=== PATIENT | female | born 1970 ===

== ENCOUNTER 2017-05-04 16:23 | Observation (INO) | payer MEDICAID ==
[2017-05-04] MEDS ORDERED: Sodium Chloride 0.9% 1,000 ML IV STA (17:44)
[2017-05-04 18:42] LABS: PH,URINE 6.5 (4.7-8.0); URINE BILIRUBIN NEGATIVE (NEGATIVE); URINE BLOOD LARGE (NEGATIVE); URINE GLUCOSE (UA) NEGATIVE (NEGATIVE); URINE KETONE NEGATIVE (NEGATIVE); URINE LEUKOCYTE ESTERASE SMALL Leu/uL (NEGATIVE); URINE PROTEIN TRACE mg/dL (<30 mg/dL); URINE UROBILINOGEN 0.2 E.U./dL (<1 E.U./dL)
--- NOTE | 2017-05-04 18:42 | ED PDOC ---
Arrival/HPI - General Chief Complaint: Female Genitourinary Time Seen by Provider: 05/04/17 17:43 Historian: Patient - History of Present Illness Narrative History of Present Illness (Text): 05/04/17 18:35 46yr old female with a history of hysterectomy presents today with hematuria that started this morning. Patient states she's had bright red blood with urination today. Patient states initially in the morning the urine looked brown in color. Patient states it's now yellow but she is still seeing blood in the toilet bowl. She denies vaginal bleeding. She denies rectal bleeding. Patient states she started to develop a sharp bilateral back pain. pt developed right sided abdominal pain No nausea or vomiting. Patient denies dizziness or weakness. No fevers or chills. Denies history of kidney stones in the past. No other complaints no medications have been taken for pain at home. Time/Duration: Other (1 day) Symptom Onset: Gradual Symptom Course: Worsening Past Medical History - Provider Review Nursing Documentation Reviewed: Yes - Travel History Have you recently traveled outside [place] w/in the past 3 mons?: No - Infectious Disease Hx of Infectious Diseases: None - Tetanus Immunization Tetanus Immunization: Unknown - Cardiac Hx Hypertension: Yes - Pulmonary Hx Respiratory Disorders: No - Neurological Hx Neurological Disorder: No - HEENT Hx HEENT Disorder: No - Renal Hx Renal Disorder: Yes Hx Kidney Stones: Yes - Endocrine/Metabolic Hx Endocrine Disorders: No - Hematological/Oncological Hx Blood Disorders: Yes Hx Anemia: Yes - Integumentary Hx Dermatological Disorder: No - Musculoskeletal/Rheumatological Hx Musculoskeletal Disorders: No - Gastrointestinal Hx Gastrointestinal Disorders: No - Genitourinary/Gynecological Hx Genitourinary Disorders: Yes (Uterine Leiomyoma) - Psychiatric Hx Anxiety: No Hx Bipolar Disorder: No Hx Depression: No Hx Emotional Abuse: No Hx Hallucinations: No Hx Panic Disorder: No Hx Post Traumatic Stress Disorder: No Hx Psychosis: No Hx Physical Abuse: No Hx Schizophrenia: No Hx Sexual Abuse: No Hx Substance Use: No - Past Surgical History Past Surgical History: No Previous - Surgical History Hx Hysterectomy: Yes (2016) - Anesthesia Hx Anesthesia: Yes Hx Anesthesia Reactions: No Hx Malignant Hyperthermia: No - Suicidal Assessment Feels Threatened In Home Enviroment: No Family/Social History - Physician Review Nursing Documentation Reviewed: Yes Family/Social History: Unknown Family HX Smoking Status: Never Smoked Hx Alcohol Use: No Hx Substance Use: No Hx Substance Use Treatment: No Allergies/Home Meds Allergies/Adverse Reactions: Allergies No Known Allergies Allergy (Verified 09/28/16 15:58) Review of Systems - Review of Systems Constitutional: absent: Fatigue, Fevers Respiratory: absent: SOB, Cough Cardiovascular: absent: Chest Pain, Palpitations Gastrointestinal: Abdominal Pain. absent: Constipation, Diarrhea, Nausea, Vomiting Genitourinary Female: Hematuria. absent: Dysuria, Frequency, Vaginal Bleeding, Vaginal Discharge Musculoskeletal: Back Pain. absent: Arthralgias, Neck Pain Skin: absent: Rash, Pruritis Neurological: absent: Headache, Dizziness Psychiatric: absent: Anxiety, Depression Physical Exam Vital Signs Reviewed: Yes Vital Signs Temp Pulse Resp BP Pulse Ox 05/04/17 21:53 80 18 156/98 H 98 05/04/17 19:28 70 18 146/72 98 05/04/17 17:24 98.2 F 69 18 148/88 98 Temperature: Afebrile Blood Pressure: Normal Pulse: Regular Respiratory Rate: Normal Appearance: Positive for: Well-Appearing, Non-Toxic, Comfortable Pain Distress: None Mental Status: Positive for: Alert and Oriented X 3 - Systems Exam Head: Present: Atraumatic Mouth: Present: Moist Mucous Membranes Neck: Present: Normal Range of Motion Respiratory/Chest: Present: Clear to Auscultation, Good Air Exchange. No: Respiratory Distress, Accessory Muscle Use Cardiovascular: Present: Regular Rate and Rhythm, Normal S1, S2. No: Murmurs Abdomen: Present: Tenderness (+ minimal right lower abd tenderness), Normal Bowel Sounds. No: Distention, Peritoneal Signs, Rebound, Guarding Back: Present: Normal Inspection, CVA Tenderness, Midline Tenderness, Other ( bilateral flank tenderness) Upper Extremity: Present: Normal ROM Lower Extremity: Present: Normal ROM Neurological: Present: GCS=15 Skin: Present: Warm, Dry, Normal Color. No: Rashes Psychiatric: Present: Alert, Oriented x 3 Medical Decision Making ED Course and Treatment: 05/04/17 19:37 Patient is nontoxic well appearing with stable vital signs presenting with right sided lower abdominal pain and flank pain toradol and NS given IV. CBC wnl CMP wnl Urinalysis + blood, small leukocytes CAT scan: FINDINGS: Lower thorax: Heart size is normal. There is minimal atelectasis and scarring at the lung bases there is prominence of the right hilum difficult to further evaluate gallbladder is partially distended.There is prominence of the common duct. There is a small hiatal hernia. ABDOMEN: Liver: unremarkable Gallbladder and bile ducts: unremarkable Pancreas: Pancreas is mildly atrophic. Spleen: unremarkable Adrenals: unremarkable Kidneys and ureters: Right kidney and ureter are unremarkable. There is obstructive uropathy on the left. There is a 7 x 6 mm obstructing stone at the left ureteropelvic junction. Ureter distal to the stone is unremarkable. Stomach and bowel: Stomach is almost empty. Rotation is normal. There are mildly distended small bowel loops in the left upper quadrant. There is no obstruction. Coronal ileum is unremarkable.Appendix is not visualized.There is no pericecal inflammation. There is moderately large amount of stool in the right colon. Appendix: See above. PELVIS: Bladder: unremarkable Reproductive: Uterus is absent. There are no adnexal masses. .ABDOMEN and PELVIS: Intraperitoneal space: There is no free air or free fluid. Bones/joints: There are degenerative changes in the osseus structures. Soft tissues: There is a small fat containing umbilical hernia. Vasculature: Vascular structures are unremarkable. There are multiple phleboliths. Lymph nodes: There is no pathologic adenopathy. IMPRESSION: 7 x 6 mm obstructing stone, left ureteropelvic junction Additional findings as described above. Patient reassessment:pt with continued pain; morphine added. case discussed with dr. ovalle in depth; Admit patient to hospitalist. he would like patient NPO after midnight; add rocephin IV. He will place stent tomorrow. Discussed all results with patient in depth case discussed with resident dr. Terry case discussed with dr. Daisy ivy accepts admission. Impression: obstructing stone, abdominal pain, back pain admit tp med/surg urology consult. dr ovalle. - Lab Interpretations Lab Results: 05/04/17 18:35 05/04/17 18:55 Lab Results 05/04/17 18:55: Phosphorus 3.7, Magnesium 2.2 05/04/17 18:55: Sodium 145, Potassium 3.4 L, Chloride 106, Carbon Dioxide 28, Anion Gap 14, BUN 9, Creatinine 0.5 L, Est GFR ( Amer) > 60, Est GFR (Non -Af Amer) > 60, Random Glucose 83, Calcium 9.5, Total Bilirubin 0.5, AST 24, ALT 40, Alkaline Phosphatase 111, Total Protein 7.7, Albumin 4.6, Globulin 3.1, Albumin/Globulin Ratio 1.5, Lipase 79 05/04/17 18:35: WBC 7.7, RBC 4.72, Hgb 12.2, Hct 37.6, MCV 79.7 L, MCH 25.8, MCHC 32.4, RDW 15.1 H, Plt Count 268, MPV 11.5 H, Gran % 55.6, Lymph % (Auto) 33.3, [place] % (Auto) 6.1 H, Eos % (Auto) 4.6, Baso % (Auto) 0.4, Gran # 4.27, Lymph # 2.6, Fisher # 0.5, Eos # 0.4, Baso # 0.03 05/04/17 17:45: Urine Color Light yellow, Urine Appearance Clear, Urine pH 6.5, Ur Specific [place] 1.010, Urine Protein Trace H, Urine Glucose (UA) Negative, Urine Ketones Negative, Urine Blood Large H, Urine Nitrate Negative, Urine Bilirubin Negative, Urine Urobilinogen 0.2, Ur Leukocyte Esterase Small H, Urine RBC 10 - 15, Urine WBC 2 - 5, Ur Epithelial Cells 0 - 2, Urine Bacteria Small, Urine Other Fiber - RAD Interpretation Radiology Orders: 05/04/17 17:54 ABD & PELVIS W/O PO OR IV CONT [CT] Stat - Medication Orders Current Medication Orders: Acetaminophen (Tylenol 325mg Tab) 650 mg PO Q6H PRN PRN Reason: Fever >100.4 F Amlodipine Besylate (Norvasc) 5 mg PO DAILY BIJAN Sodium Chloride (Sodium Chloride 0.9%) 1,000 mls @ 125 mls/hr IV .Q8H [facility] Morphine Sulfate (Morphine) 2 mg IVP Q4H PRN PRN Reason: Pain, severe (8-10) Pantoprazole Sodium (Protonix Inj) 40 mg IVP DAILY BIJAN Discontinued Medications Sodium Chloride (Sodium Chloride 0.9%) 1,000 mls @ 999 mls/hr IV .Q1H1M STA Stop: 05/04/17 18:44 Last Admin: 05/04/17 19:10 Dose: 999 mls/hr eMAR Start Stop Document 05/04/17 19:10 AD (Rec: 05/04/17 19:10 [email or web address] Intravenous Solution Start Date 05/04/17 Start Time 19:10 Ceftriaxone Sodium (Rocephin 1 Gram Ivpb) 1 gm in 100 mls @ 200 mls/hr IVPB STAT STA PRN Reason: Protocol Stop: 05/04/17 22:25 Last Admin: 05/04/17 22:50 Dose: 200 mls/hr eMAR Start Stop Document 05/04/17 22:50 EQ (Rec: 05/04/17 22:50 EQ [id number]) Intravenous Solution Start Date 05/04/17 Start Time 22:50 Ketorolac Tromethamine (Toradol) 30 mg IVP STAT STA Stop: 05/04/17 17:54 Last Admin: 05/04/17 19:11 Dose: 30 mg MAR Pain Assessment Document 05/04/17 19:11 AD (Rec: 05/04/17 19:11 [email or web address] Pain Reassessment Is this a pain reassessment? No Presence of Pain Presence of Pain Yes Pain Scale Used Pain Scale Used Numeric Description Intensity of Pain at present 6 IVP Administration Document 05/04/17 19:11 AD (Rec: 05/04/17 19:11 [facility] Charges for Administration # of IVP Administrations 1 Morphine Sulfate (Morphine) 4 mg IVP STAT STA Stop: 05/04/17 21:41 Last Admin: 05/04/17 22:50 Dose: 4 mg MAR Pain Assessment Document 05/04/17 22:50 EQ (Rec: 05/04/17 22:50 EQ [id number]) Pain Reassessment Is this a pain reassessment? No Sleep Is patient sleeping during reassessment? No Presence of Pain Presence of Pain Yes IVP Administration Document 05/04/17 22:50 EQ (Rec: 05/04/17 22:50 EQ [id number]) Charges for Administration # of IVP Administrations 1 Morphine Sulfate (Morphine) 4 mg IVP Q4H PRN PRN Reason: Pain, severe (8-10) Potassium Chloride (K-Dur 20 Meq Er Tab) 20 meq PO STAT STA Stop: 05/04/17 22:46 Last Admin: 05/04/17 23:05 Dose: 20 meq Disposition/Present on Arrival - Present on Arrival Any Indicators Present on Arrival: No History of DVT/PE: No History of Uncontrolled Diabetes: No Urinary Catheter: No History of Decub. Ulcer: No History Surgical Site Infection Following: None - Disposition Have Diagnosis and Disposition been Completed?: Yes Diagnosis: Urinary tract obstruction by kidney stone Disposition: HOSPITALIZED Disposition Time: 22:15 Patient Plan: Observation Condition: FAIR
[2017-05-04 18:48] LABS: URINE APPEARANCE CLEAR (CLEAR); URINE COLOR LIGHT YELLOW (YELLOW)
[2017-05-04 19:15] LABS: ALB/GLOB RATIO 1.5 (1.1-1.8); ALKALINE PHOSPHATASE 111 U/L (38-126); ALT/SGPT 40 U/L (7-56); AST/SGOT 24 U/L (14-36); BILIRUBIN,TOTAL 0.5 mg/dL (0.2-1.3); BLOOD UREA NITROGEN 9 mg/dL (7-21); CALCIUM 9.5 mg/dL (8.4-10.5); CARBON DIOXIDE 28 mmol/L (21-33); GFR AFRICAN-AMERICAN > 60; GLUCOSE,RANDOM 83 mg/dL (70-110); TOTAL PROTEIN 7.7 g/dL (5.8-8.3)
[2017-05-04 19:17] LABS: BASO # 0.03 K/mm3 (0.0-2.0); BASO % 0.4 % (0.0-3.0); EOS # 0.4 (0.0-0.7); EOS % 4.6 % (1.5-5.0); GRAN # 4.27 (1.4-6.5); GRAN % 55.6 % (50.0-68.0); HEMATOCRIT 37.6 % (36.0-48.0); LYMPH # 2.6 (1.2-3.4); LYMPH % 33.3 % (22.0-35.0); MEAN CELL VOLUME 79.7 fl (80.0-105.0); MEAN CORPUSCULAR HEMOGLOBIN 25.8 pg (25.0-35.0); MEAN CORPUSCULAR HGB CONC 32.4 g/dl (31.0-37.0); MEAN PLATELET VOLUME 11.5 fl (7.0-11.0); MONO # 0.5 (0.1-0.6); MONO % 6.1 % (1.0-6.0); RED CELL DISTRIBUTION WIDTH 15.1 % (11.5-14.5); WHITE BLOOD COUNT 7.7 10^3/ul (4.5-11.0)
[2017-05-04 19:18] LABS: URINE BACTERIA SMALL (NEG); URINE EPITHELIAL CELLS 0 - 2 /hpf (0-5)
[2017-05-04 19:30] LABS: CHLORIDE 106 mmol/L (98-107); LIPASE 79 U/L (23-300); POTASSIUM 3.4 mmol/L (3.6-5.0); SODIUM 145 mmol/L (132-148)
--- NOTE | 2017-05-04 21:20 | CT ---
EXAM: CT Abdomen and Pelvis Without Intravenous Contrast EXAM DATE/TIME: 05/04/2017 5:54 PM CLINICAL HISTORY: 46 years old, female; Pain; Abdominal pain; Flank; Right; Additional info: Right sided abd pain/back pain/ hematuria TECHNIQUE: Axial computed tomography images of the abdomen and pelvis without intravenous contrast. All CT scans at this facility use one or more dose reduction techniques, viz.: automated exposure control; ma/kV adjustment per patient size (including targeted exams where dose is matched to indication; i.e. head); or iterative reconstruction technique. Coronal and sagittal reformatted images were created and reviewed. COMPARISON: CT - ABD PELVIS IV CONTRAST ONLY 09/17/2015 5:57:00 PM FINDINGS: Lower thorax: Heart size is normal. There is minimal atelectasis and scarring at the lung bases there is prominence of the right hilum difficult to further evaluate gallbladder is partially distended.There is prominence of the common duct. There is a small hiatal hernia. ABDOMEN: Liver: unremarkable Gallbladder and bile ducts: unremarkable Pancreas: Pancreas is mildly atrophic. Spleen: unremarkable Adrenals: unremarkable Kidneys and ureters: Right kidney and ureter are unremarkable. There is obstructive uropathy on the left. There is a 7 x 6 mm obstructing stone at the left ureteropelvic junction. Ureter distal to the stone is unremarkable. Stomach and bowel: Stomach is almost empty. Rotation is normal. There are mildly distended small bowel loops in the left upper quadrant. There is no obstruction. Coronal ileum is unremarkable.Appendix is not visualized.There is no pericecal inflammation. There is moderately large amount of stool in the right colon. Appendix: See above. PELVIS: Bladder: unremarkable Reproductive: Uterus is absent. There are no adnexal masses. . ABDOMEN and PELVIS: Intraperitoneal space: There is no free air or free fluid. Bones/joints: There are degenerative changes in the osseus structures. Soft tissues: There is a small fat containing umbilical hernia. Vasculature: Vascular structures are unremarkable. There are multiple phleboliths. Lymph nodes: There is no pathologic adenopathy. IMPRESSION: 7 x 6 mm obstructing stone, left ureteropelvic junction Additional findings as described above.
[2017-05-04] MEDS ORDERED: Morphine 4 mg/ml ISec IVP STA (21:40)
[2017-05-04] MEDS ORDERED: cefTRIAXone 1 gm 1 GM/100 ML BAG IVPB STA (21:56)
[2017-05-04] MEDS ORDERED: Morphine 4 mg/ml ISec IVP PRN (22:27)
[2017-05-04] MEDS ORDERED: Sodium Chloride 0.9% 1,000 ML IV SCH (22:30)
--- NOTE | 2017-05-04 22:44 | CP.PCM.HP ---
<SUZIE JOSEPH - Last Filed: 05/04/17 22:37> History of Present Illness - History of Present Illness History of Present Illness: CC: Hematuria Pt is a 46 yo female with PMH of HTN presents with c/o blood in urine. Pt states that this AM she had increased right sided back pain, above her baseline back pain of MSK origin. Pt described pain as a 7 out of 10, sharp, burning, and radiated down to her right buttocks. Pt stated that the pain made it difficult for her to ambulate. Pt also stated that her urine was brown. In the afternoon, pt began noticing blood in her urine, but denied dysuria. Pt drank some cranberry juice believing the hematuria could be due to a UTI. Pt symptoms did not resolve with cranberry juice. Pt denied any other alleviating or aggravating factors. Pt denied any left sided pain. Of note, pt underwent total hysterectomy 2 years ago, in which a CT was obtained that showed bilateral ureteral stones. Nothing was done at the time, as the patient was asymptomatic and stones were small enough to pass on their own. Pt denied CP, SOB, n/v/d, constipation, abdominal pain, fever chills, KAY, dizziness, or fatigue. PMD: Mcmanus PMH: HTN Surg: Total Hysterectomy (2014) FHx: Non-contributory All: NKDA SH: Denied tobacco, EtOH, and illicit drug use Present on Admission - Present on Admission Any Indicators Present on Admission: No Review of Systems - Review of Systems Review of Systems: 12 point ROS reviewed and negative other than what is stated in HPI. Past Patient History - Infectious Disease Hx of Infectious Diseases: None - Tetanus Immunizations Tetanus Immunization: Unknown - Past Medical History & Family History Past Medical History?: Yes - Past Social History Smoking Status: Never Smoked - CARDIAC Hx Hypertension: Yes - PULMONARY Hx Respiratory Disorders: No - NEUROLOGICAL Hx Neurological Disorder: No - HEENT Hx HEENT Problems: No - RENAL Hx Chronic Kidney Disease: Yes Hx Kidney Stones: Yes - ENDOCRINE/METABOLIC Hx Endocrine Disorders: No - HEMATOLOGICAL/ONCOLOGICAL Hx Blood Disorders: Yes Hx Anemia: Yes - INTEGUMENTARY Hx Dermatological Problems: No - MUSCULOSKELETAL/RHEUMATOLOGICAL Hx Musculoskeletal Disorders: No - GASTROINTESTINAL Hx Gastrointestinal Disorders: No - GENITOURINARY/GYNECOLOGICAL Hx Genitourinary Disorders: Yes (Uterine Leiomyoma) - PSYCHIATRIC Hx Anxiety: No Hx Bipolar Disorder: No Hx Depression: No Hx Emotional Abuse: No Hx Hallucinations: No Hx Panic Symptoms: No Hx Post Traumatic Stress Disorder: No Hx Psychosis: No Hx Physical Abuse: No Hx Schizophrenia: No Hx Sexual Abuse: No Hx Substance Use: No - SURGICAL HISTORY Hx Hysterectomy: Yes (2015) - ANESTHESIA Hx Anesthesia: Yes Hx Anesthesia Reactions: No Hx Malignant Hyperthermia: No Meds Home Medications: Home Medication List Medication Instructions Recorded Confirmed Type Phenazopyridine HCl [Pyridium] 200 mg PO BID #10 tablet 05/05/17 Rx Phenazopyridine [Pyridium] 200 mg PO TID tab 05/05/17 Rx Sulfamethoxazole/Trimethoprim 1 tab PO BID #10 tab 05/05/17 Rx [Bactrim DS 800 mg-160 mg] Allergies/Adverse Reactions: Allergies Allergy/AdvReac Type Severity Reaction Status Date / Time No Known Allergies Allergy Verified 09/28/16 15:58 Physical Exam - Constitutional Appears: No Acute Distress - Head Exam Head Exam: ATRAUMATIC, NORMOCEPHALIC - Eye Exam Eye Exam: EOMI, PERRL - ENT Exam ENT Exam: Mucous Membranes Moist - Neck Exam Neck exam: Positive for: Full Rom. Negative for: Lymphadenopathy, Tenderness, Thyromegaly - Respiratory Exam Respiratory Exam: Clear to Auscultation Bilateral. absent: Rales, Rhonchi, Wheezes - Cardiovascular Exam Cardiovascular Exam: RRR, +S1, +S2. absent: Diastolic murmur, Gallop, Rubs, Systolic Murmur - GI/Abdominal Exam GI & Abdominal Exam: Soft. absent: Distended, Guarding, Organomegaly, Rebound, Tenderness - Extremities Exam Extremities exam: Positive for: normal inspection - Back Exam Back exam: CVA tenderness (L), CVA tenderness (R). absent: muscle spasm, paraspinal tenderness, tenderness - Neurological Exam Neurological exam: Alert, Oriented x3 - Psychiatric Exam Psychiatric exam: Normal Affect, Normal Mood - Skin Skin Exam: Dry, Intact, Normal Color, Warm Results - Vital Signs Recent Vital Signs: Last Vital Signs Temp 98.2 F 05/04/17 17:24 Pulse 80 05/04/17 21:53 Resp 18 05/04/17 21:53 BP 156/98 H 05/04/17 21:53 Pulse Ox 98 05/04/17 21:53 - Labs Result Diagrams: 05/04/17 18:35 05/04/17 18:55 Labs: Laboratory Results - last 24 hr 05/04/17 05/04/17 05/04/17 17:45 18:35 18:55 WBC 7.7 RBC 4.72 Hgb 12.2 Hct 37.6 MCV 79.7 L MCH 25.8 MCHC 32.4 RDW 15.1 H Plt Count 268 MPV 11.5 H Gran % 55.6 Lymph % (Auto) 33.3 [place] % (Auto) 6.1 H Eos % (Auto) 4.6 Baso % (Auto) 0.4 Gran # 4.27 Lymph # 2.6 [place] # 0.5 Eos # 0.4 Baso # 0.03 Sodium 145 Potassium 3.4 L Chloride 106 Carbon Dioxide 28 Anion Gap 14 BUN 9 Creatinine 0.5 L Est GFR ( Amer) > 60 Est GFR (Non-Af Amer) > 60 Random Glucose 83 Calcium 9.5 Total Bilirubin 0.5 AST 24 ALT 40 Alkaline Phosphatase 111 Total Protein 7.7 Albumin 4.6 Globulin 3.1 Albumin/Globulin Ratio 1.5 Lipase 79 Urine Color Light yellow Urine Appearance Clear Urine pH 6.5 Ur Specific [place] 1.010 Urine Protein Trace H Urine Glucose (UA) Negative Urine Ketones Negative Urine Blood Large H Urine Nitrate Negative Urine Bilirubin Negative Urine Urobilinogen 0.2 Ur Leukocyte Esterase Small H Urine RBC 10 - 15 Urine WBC 2 - 5 Ur Epithelial Cells 0 - 2 Urine Bacteria Small Urine Other Fiber Assessment & Plan - Assessment and Plan (Free Text) Assessment: 46 yo female with PMH of HTN presents with hematuria and b/l CVAT will be admitted for evaluation and treatment for ureterolithiasis. Plan: 1. Ureterolithiasis - CT abdomen showed 7x6 mm obstructing stone in the left ureteropelvic junction - UA showed large blood, trace protein, and small leuk esterase - Urology consulted, will place stent in AM - NPO after midnight - IVF - Tylenol and Morphine for pain - Strain urine for calculi 2. Hypokalemia - K 3.4 - KCl 20 mEq PO - Monitor and replete as needed 3. HTN - Cont home med: Norvasc GI/DVT PPx - Protonix - SCDs Pt discussed in detail with Dr. Coe. Alvarado Joseph, PGY1 <Vickie Coe - Last Filed: 05/07/17 06:41> Results - Vital Signs Recent Vital Signs: Last Vital Signs Temp 98.4 F 05/05/17 16:48 Pulse 59 L 05/05/17 16:48 Resp 16 05/05/17 16:48 BP 146/81 05/05/17 16:48 Pulse Ox 98 05/05/17 16:48 - Labs Result Diagrams: 05/05/17 07:27 05/05/17 07:27
[2017-05-04] MEDS ORDERED: Potassium Chloride 20 mEq ER Tab PO STA (22:45)
[2017-05-04] MEDS ORDERED: Morphine 2 mg/ml ISec IVP PRN (22:55)
[2017-05-04 23:23] LABS: MAGNESIUM 2.2 mg/dL (1.7-2.2); PHOSPHOROUS 3.7 mg/dL (2.5-4.5)
[2017-05-05 02:53] VITALS: BMI 32.9
[2017-05-05] MEDS ORDERED: Influenza Vaccine 60 mcg/0.5 mL SYR (4YR UP) IM ONE (02:53)
[2017-05-05] MEDS ORDERED: Pneumococcal 23-Valent Vaccine IM ONE (02:53)
[2017-05-05 07:35] LABS: HEMATOCRIT 36.5 % (36.0-48.0); MEAN CELL VOLUME 80.2 fl (80.0-105.0); MEAN CORPUSCULAR HEMOGLOBIN 25.3 pg (25.0-35.0); MEAN CORPUSCULAR HGB CONC 31.5 g/dl (31.0-37.0); MEAN PLATELET VOLUME 11.3 fl (7.0-11.0); RED CELL DISTRIBUTION WIDTH 15.2 % (11.5-14.5); WHITE BLOOD COUNT 7.3 10^3/ul (4.5-11.0)
[2017-05-05 07:45] LABS: ALB/GLOB RATIO 1.5 (1.1-1.8); ALKALINE PHOSPHATASE 86 U/L (38-126); ALT/SGPT 35 U/L (7-56); AST/SGOT 20 U/L (14-36); BILIRUBIN,TOTAL 0.3 mg/dL (0.2-1.3); BLOOD UREA NITROGEN 8 mg/dL (7-21); CARBON DIOXIDE 29 mmol/L (21-33); CHLORIDE 110 mmol/L (98-107); GFR AFRICAN-AMERICAN > 60; GLUCOSE,RANDOM 96 mg/dL (70-110); POTASSIUM 3.8 mmol/L (3.6-5.0); SODIUM 145 mmol/L (132-148); TOTAL PROTEIN 6.2 g/dL (5.8-8.3)
[2017-05-05 09:48] LABS: INR 1.01 (0.93-1.08); PARTIAL THROMBOPLASTIN TIME 27.3 Seconds (23.7-30.8)
--- NOTE | 2017-05-05 14:21 | CP.PCM.PN ---
<TonyaMarisoln - Last Filed: 05/05/17 14:22> Subjective - Date & Time of Evaluation Date of Evaluation: 05/05/17 Time of Evaluation: 07:18 - Subjective Subjective: Patient was seen and examined at bedside. Per nursing no acute events occurred overnight. The patient still reports some left sided back pain that she rates a 6/10 in severity. The patient denies any chest pain, shortness of breath, nausea, vomiting, abdominal pain, dysuria, or any other complaints. Objective - Vital Signs/Intake and Output Vital Signs (last 24 hours): Temp Pulse Resp BP Pulse Ox 97.6 F 72 20 127/75 98 05/05/17 08:06 05/05/17 10:32 05/05/17 08:06 05/05/17 10:32 05/05/17 08:06 Intake and Output: 05/05/17 05/05/17 06:59 18:59 Output Total 1000 Balance -1000 - Medications Medications: Current Medications Acetaminophen (Tylenol 325mg Tab) 650 mg PO Q6H PRN PRN Reason: Fever >100.4 F Amlodipine Besylate (Norvasc) 5 mg PO DAILY [facility] Last Admin: 05/05/17 10:32 Dose: 5 mg Sodium Chloride (Sodium Chloride 0.9%) 1,000 mls @ 125 mls/hr IV .Q8H [facility] Last Admin: 05/05/17 00:00 Dose: 125 mls/hr Morphine Sulfate (Morphine) 2 mg IVP Q4H PRN PRN Reason: Pain, severe (8-10) Pantoprazole Sodium (Protonix Inj) 40 mg IVP DAILY [facility] Last Admin: 05/05/17 10:33 Dose: 40 mg - Labs Labs: 05/05/17 07:27 05/05/17 07:27 PT 10.9 Seconds (9.9-11.8) 05/05/17 09:20 INR 1.01 (0.93-1.08) 05/05/17 09:20 APTT 27.3 Seconds (23.7-30.8) 05/05/17 09:20 - Head Exam Head Exam: ATRAUMATIC, NORMAL INSPECTION, NORMOCEPHALIC - Eye Exam Eye Exam: EOMI, Normal appearance, PERRL. absent: Periorbital tenderness Pupil Exam: Irregular, NORMAL ACCOMODATION, PERRL. absent: Fixed, Unequal - ENT Exam ENT Exam: Mucous Membranes Moist, Normal Exam. absent: Normal Oropharynx, TM's Normal Bilaterally - Neck Exam Neck Exam: Normal Inspection. absent: Lymphadenopathy, Thyromegaly - Respiratory Exam Respiratory Exam: Clear to Ausculation Bilateral, NORMAL BREATHING PATTERN. absent: Rhonchi, Wheezes - Cardiovascular Exam Cardiovascular Exam: REGULAR RHYTHM, +S1, +S2. absent: +S4 - GI/Abdominal Exam GI & Abdominal Exam: Soft, Normal Bowel Sounds. absent: Hyperactive Bowel Sounds - Extremities Exam Extremities Exam: Full ROM, Normal Inspection. absent: Joint Swelling, Pedal Edema, Tenderness - Back Exam Back Exam: NORMAL INSPECTION. absent: CVA tenderness (L), CVA tenderness (R), paraspinal tenderness Additional comments: reproducible lower left back pain. - Neurological Exam Neurological Exam: Alert, Awake, CN II-XII Intact, Normal Gait, Oriented x3 - Psychiatric Exam Psychiatric exam: Normal Affect, Normal Mood - Skin Skin Exam: Dry, Intact Assessment and Plan - Assessment and Plan (Free Text) Assessment: 46 yo female with PMH of HTN presents with hematuria and b/l CVAT will be admitted for evaluation and treatment for ureterolithiasis. Plan: 1. Ureterolithiasis - CT abdomen showed 7x6 mm obstructing stone in the left ureteropelvic junction - UA showed large blood, trace protein, and small leuk esterase - Urology scheduled to place stent today. Will f/u after recovery and reasses. - IVF - Continue Tylenol and Morphine for pain - Strain urine for calculi 2. Hypokalemia - K 3.8. Resolved. - Monitor and replete as needed 3. HTN - Cont home med: Norvasc GI/DVT PPx - Protonix - SCDs <Veronica Gonzalez - Last Filed: 05/06/17 14:08> Objective - Vital Signs/Intake and Output Vital Signs (last 24 hours): Temp Pulse Resp BP Pulse Ox 98.4 F 59 L 16 146/81 98 05/05/17 16:48 05/05/17 16:48 05/05/17 16:48 05/05/17 16:48 05/05/17 16:48 - Labs Labs: 05/05/17 07:27 05/05/17 07:27 PT 10.9 Seconds (9.9-11.8) 05/05/17 09:20 INR 1.01 (0.93-1.08) 05/05/17 09:20 APTT 27.3 Seconds (23.7-30.8) 05/05/17 09:20 Attending/Attestation - Attestation I have personally seen and examined this patient.: Yes I have fully participated in the care of the patient.: Yes I have reviewed all pertinent clinical information, including history, physical exam and plan: Yes Notes (Text): 05/06/17 14:06 Patient was seen and examined with medical reception specialist. Agreed with resident assessment and plan. 46 yrs old female was admitted with left flank pain due to left ureter stone, underwent cystoscopy and Left ureter stent placement. Patient is stable after procedure.She is cleared by urology for discharge and will be discharged home and will follow up with PCP and Urology. Management plan was discussed in detail with patient Education was provided.
[2017-05-05 14:47] VITALS: TEMP 98.4
[2017-05-05] MEDS ORDERED: Lidocaine 2% Jelly (Uro-Jet) ONE (15:12)
[2017-05-05] MEDS ORDERED: Iohexol 240 (50 ml) ONE (15:12)
[2017-05-05] MEDS ORDERED: Propofol 10 mg/ml Inj (20 ML) ONE (15:22)
[2017-05-05] MEDS ORDERED: Midazolam 2 MG/2 ML VIAL ONE (15:23)
[2017-05-05] MEDS ORDERED: HYDROmorphone 0.5 mg/0.5 ml ISec IVP PRN (15:50)
[2017-05-05] MEDS ORDERED: Lactated Ringer's 1,000 ML IV SCH (16:00)
[2017-05-05 16:21] VITALS: RESP 16; O2SAT 98
[2017-05-05 16:56] VITALS: BP 146/81; PULSE 59
--- NOTE | 2017-05-05 18:23 | RAD ---
PROCEDURE: Fluoroscopy up to 1 hr. HISTORY: STENT INSERTION ( LEFT ) COMPARISON: None TECHNIQUE: Standard protocol for this study/examination. FINDINGS: Total fluoroscopic time (continuous mode) utilized during the procedure: 12.7 seconds. IMPRESSION: Confirmation of double-J catheter placement on the left.
[2017-05-05] MEDS ORDERED: cefTRIAXone 1 gm 1 GM/100 ML BAG IVPB SCH (21:00)
--- NOTE | 2017-05-05 21:07 | OP ---
PROCEDURE DATE: 05/05/2017 PREOPERATIVE DIAGNOSIS: Obstructing left ureteropelvic junction stone. POSTOPERATIVE DIAGNOSIS: Obstructing left ureteropelvic junction stone. PROCEDURE: Cystoscopy, insertion of left Pigtail stent. SURGEON: Rom Birmingham MD TYPE OF ANESTHESIA: LMA. DESCRIPTION OF PROCEDURE: After adequate LMA anesthesia was given, the patient was placed lithotomy, prepped and draped in the usual manner. A 22-Citizen Of [place] cystourethroscope was introduced. The bladder showed no tumors, foreign bodies, or stones. Orifices were normal in appearance and location. Urine was obtained for C and S. A 0.35 sensor wire was advanced up the left ureter. I could see the stone which popped into the left renal pelvis. Over the sensor wire, a 6-Citizen [place] 24-cm Pigtail stent was placed. When properly placed, the wire was removed. The stent coiled in the bladder and was in upper calyx. However, when the patient is upright, it will come down and coil mostly left renal pelvis as I anticipate. She had the bladder drained. The cystoscope was removed, was awakened and brought to the recovery room in good condition. Rom Birmingham MD
--- NOTE | 2017-05-05 22:08 | CARD ---
APPROVED REPORT EKG Measurement Heart [id number] <Conclusion> Normal sinus rhythm Minimal voltage criteria for LVH, may be normal variant Borderline ECG
--- NOTE | 2017-05-05 22:39 | CON ---
GENITOURINARY CONSULTATION DATE: 05/05/2017 CHIEF COMPLAINT: Obstructing left upper urethral calculus. HISTORY OF PRESENT ILLNESS: A 46-year-old female, who initially was complaining of right-sided pain, although on questioning, she complains of right and left-sided pain. She came to the ER, where CAT scan was done and showed a 7-mm obstructing left upper urethral calculus, suggested the UPJ. She had noted gross hematuria. She had no fever or chills. She had a prior stone in the past, which she passed. No family history of kidney stones. PAST MEDICAL HISTORY: Significant for history of hypertension. She said she has a past history of leiomyomas of the uterus. ALLERGIES: SHE HAS NO ALLERGIES. PAST SURGICAL HISTORY: She had a hysterectomy in 2016. SOCIAL HISTORY: She does not smoke or use alcohol. FAMILY HISTORY: Noncontributory. REVIEW OF SYSTEMS: Currently, no symptoms referable to the head, eyes, ears, nose, or throat. No cardiac, respiratory or GI symptoms. No symptoms. At this time, no dermatologic or psychiatric symptoms. PHYSICAL EXAMINATION: VITAL SIGNS: Shows her to be afebrile, pulse 72, blood pressure 127/75 and respirations 20. HEENT: Normocephalic. Sclerae clear. Conjunctivae non-injected. NECK: Currently, no CVA pain. ABDOMEN: No hepatosplenomegaly, rebound or guarding. SKIN: No purpura or edema. NEUROLOGIC: Oriented x3. LABORATORY DATA: Shows white count 7,300 and hemoglobin 11.5. Creatinine is 0.5. Her calcium is 9.0. Coags are normal. Her initial urine show 10 to 15 rbc's. I reviewed the CAT scan and films, she has an obstructing left UPJ stone, I am going to place a pigtail stent. PLAN: The patient is aware of the plan and then, we will have an elective ESWL if the stone is radiopaque. Rom Birmingham MD
== END 2017-05-05 21:28 | disposition home or self-care (01) ==
LOC: ED 16:23 → ERH 22:19 → 5RNO 23:14
PROVIDERS: ADMIT Internal Medicine; ATTEND Internal Medicine
DX: N20.1 Calculus of ureter (principal); R31.0 Gross hematuria; I12.9 Hypertensive chronic kidney disease with stage 1 through stage 4 chronic kidney disease, or unspecified chronic kidney disease; N18.9 Chronic kidney disease, unspecified; N13.9 Obstructive and reflux uropathy, unspecified; Z90.710 Acquired absence of both cervix and uterus
CPT/HCPCS: 36415; 52332; 74176; 76000; 80053; 81001; 83690; 83735; 84100; 85025; 85027; 85610; 85730; 87086; 93005; 96374; 96375; 99285; C1758; C2625; C9113; G0378; J0696; J1885; J2250; J2270; J2704; J3010; J7040; J7120; Q9966

== ENCOUNTER 2017-05-12 17:14 | Emergency (ER) | payer MEDICAID ==
[2017-05-12 17:14] VITALS: BMI 32.9
[2017-05-12] MEDS ORDERED: Sodium Chloride 0.9% 1,000 ML IV STA (17:47)
--- NOTE | 2017-05-12 18:00 | ED PDOC ---
Arrival/HPI - General Chief Complaint: Female Genitourinary Time Seen by Provider: 05/12/17 17:29 Historian: Patient - History of Present Illness Narrative History of Present Illness (Text): 05/12/17 17:58 46yo female with PMHx of hypertension and recent kidney stone with stent placement, present with worsening left flank/back pain and hematuria. Stent was placed her on 05/05/17 and patient have appointment with the urologic center in [place] on Thursday. states she came to ED secondary to the worsening pain and hematuria. she denies nausea, vomiting, fever, chills, any other complaint. Past Medical History - Provider Review Nursing Documentation Reviewed: Yes - Infectious Disease Hx of Infectious Diseases: None - Tetanus Immunization Tetanus Immunization: Unknown - Cardiac Hx Hypertension: Yes - Pulmonary Hx Respiratory Disorders: No - Neurological Hx Neurological Disorder: No - HEENT Hx HEENT Disorder: No - Renal Hx Renal Disorder: Yes Hx Kidney Stones: Yes Other/Comment: kidney stent 05/05/2017 - Endocrine/Metabolic Hx Endocrine Disorders: No - Hematological/Oncological Hx Blood Transfusions: No Hx Blood Transfusion Reaction: No - Integumentary Hx Dermatological Disorder: No - Musculoskeletal/Rheumatological Hx Musculoskeletal Disorders: No - Gastrointestinal Hx Gastrointestinal Disorders: No - Genitourinary/Gynecological Hx Genitourinary Disorders: Yes (Uterine Leiomyoma) - Psychiatric Hx Emotional Abuse: No Hx Physical Abuse: No Hx Substance Use: No - Past Surgical History Past Surgical History: No Previous - Surgical History Other/Comment: stent placed in L kidney - Anesthesia Hx Anesthesia: Yes Hx Anesthesia Reactions: No Hx Malignant Hyperthermia: No - Suicidal Assessment Feels Threatened In Home Enviroment: No Family/Social History - Physician Review Nursing Documentation Reviewed: Yes Family/Social History: Unknown Family HX Smoking Status: Never Smoked Hx Alcohol Use: No Hx Substance Use: No Hx Substance Use Treatment: No Allergies/Home Meds Allergies/Adverse Reactions: Allergies No Known Allergies Allergy (Verified 05/12/17 17:16) Review of Systems - Physician Review All systems were reviewed & negative as marked: Yes - Review of Systems Constitutional: Normal Eyes: Normal ENT: Normal Respiratory: Normal Cardiovascular: Normal Gastrointestinal: Abdominal Pain Genitourinary Female: Normal Musculoskeletal: Back Pain Skin: Normal Neurological: Normal Endocrine: Normal Hemo/Lymphatic: Normal Psychiatric: Normal Physical Exam Vital Signs Reviewed: Yes Vital Signs Temp Pulse Resp BP Pulse Ox 05/12/17 17:48 98.2 F 85 16 112/77 98 05/12/17 17:17 98.1 F 84 18 118/73 98 Temperature: Afebrile Blood Pressure: Normal Pulse: Regular Respiratory Rate: Normal Appearance: Positive for: Well-Appearing, Non-Toxic, Comfortable Pain Distress: None Mental Status: Positive for: Alert and Oriented X 3 - Systems Exam Head: Present: Atraumatic, Normocephalic Pupils: Present: PERRL Extroacular Muscles: Present: EOMI Conjunctiva: Present: Normal Mouth: Present: Moist Mucous Membranes Neck: Present: Normal Range of Motion Respiratory/Chest: Present: Clear to Auscultation, Good Air Exchange. No: Respiratory Distress, Accessory Muscle Use Cardiovascular: Present: Regular Rate and Rhythm, Normal S1, S2. No: Murmurs Abdomen: Present: Tenderness (LEft flank/pelvic), Normal Bowel Sounds. No: Distention, Peritoneal Signs, Rebound, Guarding, McBurney's Point Tender, Rovsing's Sign Present Back: Present: CVA Tenderness (Left CVAT) Upper Extremity: Present: Normal Inspection. No: Cyanosis, Edema Lower Extremity: Present: Normal Inspection. No: Edema Neurological: Present: GCS=15, CN II-XII Intact, Speech Normal Skin: Present: Warm, Dry, Normal Color. No: Rashes Psychiatric: Present: Alert, Oriented x 3, Normal Insight, Normal Concentration Medical Decision Making ED Course and Treatment: 05/12/17 18:[address] Winters, he recommends antibiotic and analgesics. States patient should f/u with them tomorrow in the office. PT was hydrated in ED. She have no leukocyte. Cipro was given. She was DC home with Cipro and Percocet. Advised to f/u Dr. Winters/Vinnie tomorrow - Lab Interpretations Lab Results: 05/12/17 18:00 05/12/17 18:00 Lab Results 05/12/17 18:00: Sodium 143, Potassium 3.4 L, Chloride 105, Carbon Dioxide 27, Anion Gap 14, BUN 20, Creatinine 0.8, Est GFR ( Amer) > 60, Est GFR (Non- Af Amer) > 60, Random Glucose 130 H, Calcium 9.5, Total Bilirubin 0.4, AST 24, ALT 32, Alkaline Phosphatase 105, Total Protein 7.1, Albumin 4.2, Globulin 2.8, Albumin/Globulin Ratio 1.5 05/12/17 18:00: WBC 8.4, RBC 4.35, Hgb 11.2 L, Hct 35.2 L, MCV 80.9, MCH 25.7, MCHC 31.8, RDW 14.9 H, Plt Count 237, MPV 10.9, Gran % 56.5, Lymph % (Auto) 32.6 , [place] % (Auto) 5.3, Eos % (Auto) 5.1 H, Baso % (Auto) 0.5, Gran # 4.74, Lymph # 2.7, [place] # 0.4, Eos # 0.4, Baso # 0.04 - Medication Orders Current Medication Orders: Sodium Chloride (Sodium Chloride 0.9%) 1,000 mls @ 999 mls/hr IV .Q1H1M STA Stop: 05/12/17 18:47 Last Admin: 05/12/17 18:15 Dose: 999 mls/hr eMAR Start Stop Document 05/12/17 18:15 MS (Rec: 05/12/17 18:15 MS [facility]) Intravenous Solution Start Date 05/12/17 Start Time 18:15 End Date 05/12/17 End time 19:15 Total Infusion Time 60 Discontinued Medications Ketorolac Tromethamine (Toradol) 60 mg IM STAT STA Stop: 05/12/17 17:48 Last Admin: 05/12/17 18:08 Dose: 60 mg MAR Pain Assessment Document 05/12/17 18:08 MS (Rec: 05/12/17 18:15 [facility]) Pain Reassessment Is this a pain reassessment? No Sleep Is patient sleeping during reassessment? No Presence of Pain Presence of Pain Yes Pain Scale Used Pain Scale Used Numeric Location Left, Right or Bilateral Bilateral Upper or Lower Lower Pain Location Body Site Back Description Description Constant Intensity of Pain at present 8 Pain Behavior Guarding Facial Grimacing Alleviating Factors/Management Medication Techniques Alleviating Factors Medication IM Administration Charges Document 05/12/17 18:08 MS (Rec: 05/12/17 18:15 MS [facility]) Injection Site MAR Injection Site Left Deltoid Charges for Administration # of IM Administrations 1 Disposition/Present on Arrival - Present on Arrival Any Indicators Present on Arrival: No History of DVT/PE: No History of Uncontrolled Diabetes: No Urinary Catheter: No History of Decub. Ulcer: No History Surgical Site Infection Following: None - Disposition Have Diagnosis and Disposition been Completed?: Yes Diagnosis: Urinary tract obstruction by kidney stone Disposition: HOME/ ROUTINE Disposition Time: 18:50 Patient Plan: Discharge Condition: STABLE Discharge Instructions (ExitCare): Renal Colic (ED) Additional Instructions: Follow up with your Urologist tomorrow Return to ED for any new or worsening symptoms Prescriptions: Ciprofloxacin [Cipro] 500 mg PO BID #14 tab oxyCODONE/Acetaminophen [Percocet 5/325 mg Tab] 1 ea PO Q6 #9 tab [facility], [Non[facility]Staff[facility] - Follow up with primary Forms: [employer] (Citizen [place])
[2017-05-12 18:20] LABS: BASO # 0.04 K/mm3 (0.0-2.0); BASO % 0.5 % (0.0-3.0); EOS # 0.4 (0.0-0.7); EOS % 5.1 % (1.5-5.0); GRAN # 4.74 (1.4-6.5); GRAN % 56.5 % (50.0-68.0); HEMATOCRIT 35.2 % (36.0-48.0); LYMPH # 2.7 (1.2-3.4); LYMPH % 32.6 % (22.0-35.0); MEAN CELL VOLUME 80.9 fl (80.0-105.0); MEAN CORPUSCULAR HEMOGLOBIN 25.7 pg (25.0-35.0); MEAN CORPUSCULAR HGB CONC 31.8 g/dl (31.0-37.0); MEAN PLATELET VOLUME 10.9 fl (7.0-11.0); MONO # 0.4 (0.1-0.6); MONO % 5.3 % (1.0-6.0); RED CELL DISTRIBUTION WIDTH 14.9 % (11.5-14.5); WHITE BLOOD COUNT 8.4 10^3/ul (4.5-11.0)
[2017-05-12 18:24] LABS: ALB/GLOB RATIO 1.5 (1.1-1.8); ALKALINE PHOSPHATASE 105 U/L (38-126); ALT/SGPT 32 U/L (7-56); AST/SGOT 24 U/L (14-36); BILIRUBIN,TOTAL 0.4 mg/dL (0.2-1.3); BLOOD UREA NITROGEN 20 mg/dL (7-21); CALCIUM 9.5 mg/dL (8.4-10.5); CARBON DIOXIDE 27 mmol/L (21-33); CHLORIDE 105 mmol/L (98-107); GFR AFRICAN-AMERICAN > 60; GLUCOSE,RANDOM 130 mg/dL (70-110); POTASSIUM 3.4 mmol/L (3.6-5.0); SODIUM 143 mmol/L (132-148); TOTAL PROTEIN 7.1 g/dL (5.8-8.3)
[2017-05-12 19:23] VITALS: PULSE 73
[2017-05-12 19:28] VITALS: BP 124/67; RESP 16; TEMP 97.9; O2SAT 99
== END 2017-05-12 19:30 | disposition home or self-care (01) ==
LOC: ED 17:14
DX: N13.9 Obstructive and reflux uropathy, unspecified (principal); N20.0 Calculus of kidney; I10 Essential (primary) hypertension
CPT/HCPCS: 80053; 85025; 96360; 96372; 99283; J1885; J7040

== ENCOUNTER 2017-12-04 17:00 | Emergency (ER) | payer MEDICAID ==
[2017-12-04 17:00] VITALS: BMI 32.9
[2017-12-04 17:19] VITALS: TEMP 98.8
[2017-12-04] MEDS ORDERED: MethylPREDNISolone Depo 40 mg/ml Inj IM STA (18:05)
--- NOTE | 2017-12-04 18:31 | ED PDOC ---
Arrival/HPI - General Chief Complaint: Back Pain Time Seen by Provider: 12/04/17 17:44 Historian: Patient - History of Present Illness Narrative History of Present Illness (Text): 12/04/17 18:31 A 47 year old female, whose past medical history includes hypertension and kidney stone on right 3 months ago, and hysterectomy, presents to the emergency department complaining of sciatica- like pain on right side radiating down to her leg. Patient denies any other complaints at this time. Symptom Onset: Sudden Symptom Course: Unchanged Activities at Onset: Rest Context: Home Past Medical History - Provider Review Nursing Documentation Reviewed: Yes - Infectious Disease Hx of Infectious Diseases: None - Tetanus Immunization Tetanus Immunization: Unknown - Reproductive Menopause: No - Cardiac Hx Cardiac Disorders: Yes Hx Hypertension: Yes - Pulmonary Hx Respiratory Disorders: No - Neurological Hx Neurological Disorder: No - HEENT Hx HEENT Disorder: No - Renal Hx Renal Disorder: Yes Hx Kidney Stones: Yes Other/Comment: kidney stent 05/05/2017 - Endocrine/Metabolic Hx Endocrine Disorders: No - Hematological/Oncological Hx Blood Disorders: Yes Hx Anemia: Yes - Integumentary Hx Dermatological Disorder: No - Musculoskeletal/Rheumatological Hx Falls: No - Gastrointestinal Hx Gastrointestinal Disorders: No - Genitourinary/Gynecological Hx Genitourinary Disorders: Yes (Uterine Leiomyoma) - Psychiatric Hx Psychophysiologic Disorder: No Hx Emotional Abuse: No Hx Physical Abuse: No Hx Substance Use: No - Past Surgical History Past Surgical History: No Previous - Surgical History Hx Hysterectomy: Yes Other/Comment: stent placed in L kidney - Anesthesia Hx Anesthesia: Yes Hx Anesthesia Reactions: No Hx Malignant Hyperthermia: No - Suicidal Assessment Feels Threatened In Home Enviroment: No Family/Social History - Physician Review Nursing Documentation Reviewed: Yes Family/Social History: No Known Family HX Smoking Status: Former Smoker Hx Alcohol Use: No Hx Substance Use: No Hx Substance Use Treatment: No Allergies/Home Meds Allergies/Adverse Reactions: Allergies No Known Allergies Allergy (Verified 05/20/17 17:10) Review of Systems - Physician Review All systems were reviewed & negative as marked: Yes - Review of Systems Constitutional: absent: Fevers Musculoskeletal: Other (sciatic right sided pain radiating down right leg) Physical Exam Vital Signs Reviewed: Yes Vital Signs Temp Pulse Resp BP Pulse Ox 12/04/17 17:16 98.8 F 82 16 94/67 L 99 Temperature: Afebrile Blood Pressure: Normal Pulse: Regular Respiratory Rate: Normal Appearance: Positive for: Well-Appearing, Non-Toxic, Comfortable Pain Distress: None Mental Status: Positive for: Alert and Oriented X 3 - Systems Exam Head: Present: Atraumatic, Normocephalic Pupils: Present: PERRL Extroacular Muscles: Present: EOMI Conjunctiva: Present: Normal Mouth: Present: Moist Mucous Membranes Neck: Present: Normal Range of Motion Respiratory/Chest: Present: Clear to Auscultation, Good Air Exchange. No: Respiratory Distress, Accessory Muscle Use Cardiovascular: Present: Regular Rate and Rhythm, Normal S1, S2. No: Murmurs Abdomen: No: Tenderness, Distention, Peritoneal Signs Back: Present: Normal Inspection Upper Extremity: Present: Normal Inspection. No: Cyanosis, Edema Lower Extremity: Present: Normal Inspection. No: Edema Neurological: Present: GCS=15, CN II-XII Intact, Speech Normal Skin: Present: Warm, Dry, Normal Color. No: Rashes Psychiatric: Present: Alert, Oriented x 3, Normal Insight, Normal Concentration Medical Decision Making ED Course and Treatment: 12/04/17 18:29 Impression: A 47 year old with sciatic like right sided pain radiating down her leg. Plan: -- CT lumbar spine -- labs -- Urinalysis -- Toradol, Depo-medrol -- Reassess and disposition Progress Notes: CT Lumbar Spine Without Intravenous Contrast FINDINGS: Vertebrae: Visualized vertebral bodies are normal in height. There are only 4 non-rib bearing lumbar type vertebral bodies. There degenerative changes in the lower thoracic spine with disc space narrowing and osteophyte formation. There is mild posterior disc space narrowing at all lumbar levels greatest at the lumbosacral junction with small posterior spurs with disc bulging. There is mild bony encroachment on the left neural foramina at the lumbosacral junction. There is degenerative facet disease greatest at the lumbosacral junction. There is small osteophytes at multiple lumbar levels. Discs/spinal canal/neural foramina: See above. Soft tissues: Psoas and paraspinous muscles are symmetric. Kidneys and ureters: There are nonobstructing left renal stones. IMPRESSION: Degenerative change comment no fracture Dictated and Authenticated by: Therese Martin MD 12/04/2017 8:09 PM Eastern Time ([place] & [place]) - Lab Interpretations Lab Results: 12/04/17 18:48 12/04/17 18:48 Lab Results 12/04/17 18:48: Sodium 152 H, Potassium 3.4 L, Chloride 108 H, Carbon Dioxide 30 , Anion Gap 18, BUN 16, Creatinine 0.6 L, Est GFR ( Amer) > 60, Est GFR ( Non-Af Amer) > 60, Random Glucose 65 L, Calcium 9.6, Total Bilirubin 0.2, AST 22 , ALT 32, Alkaline Phosphatase 82, Total Protein 7.2, Albumin 4.2, Globulin 2.9 , Albumin/Globulin Ratio 1.4 12/04/17 18:48: PT 11.9, INR 1.04 12/04/17 18:48: WBC 8.6 D, RBC 4.79, Hgb 11.8 L, Hct 37.4, MCV 78.1 L, MCH 24.6 L, MCHC 31.6, RDW 16.0 H, Plt Count 289, MPV 11.2 H, Gran % 65.2, Lymph % ( Auto) 25.0, [place] % (Auto) 7.2 H, Eos % (Auto) 2.3, Baso % (Auto) 0.3, Gran # 5.63, Lymph # (Auto) 2.2, [place] # (Auto) 0.6, Eos # (Auto) 0.2, Baso # (Auto) 0.03 12/04/17 17:32: Urine Color Yellow, Urine Appearance Clear, Urine pH 6.5, Ur Specific [place] 1.025, Urine Protein Negative, Urine Glucose (UA) Negative, Urine Ketones Trace H, Urine Blood Negative, Urine Nitrate Negative, Urine Bilirubin Negative, Urine Urobilinogen 0.2, Ur Leukocyte Esterase Negative I have reviewed the lab results: Yes - RAD Interpretation Radiology Orders: 12/04/17 18:05 LUMBAR SPINE W/O CONTRAST [CT] Stat - Medication Orders Current Medication Orders: Discontinued Medications Ketorolac Tromethamine (Toradol) 60 mg IM STAT STA Stop: 12/04/17 18:06 Last Admin: 12/04/17 18:49 Dose: 60 mg MAR Pain Assessment Document 12/04/17 18:49 SS (Rec: 12/04/17 18:50 SS [id number]) Pain Reassessment Is this a pain reassessment? No Sleep Is patient sleeping during reassessment? No Presence of Pain Presence of Pain Yes Pain Scale Used Pain Scale Used Numeric IM Administration Charges Document 12/04/17 18:49 SS (Rec: 12/04/17 18:50 SS [id number]) Charges for Administration # of IM Administrations 1 Methylprednisolone Acetate (Depo-Medrol) 80 mg IM STAT STA Stop: 12/04/17 18:06 Last Admin: 12/04/17 18:49 Dose: 80 mg IM Administration Charges Document 12/04/17 18:49 SS (Rec: 12/04/17 18:49 SS [id number]) Injection Site MAR Injection Site Left Vastus Lateralis Charges for Administration # of IM Administrations 1 - Scribe Statement The provider has reviewed the documentation as recorded by the Scribe Estefanía Mora Provider Scribe Attestation: All medical record entries made by the Scribe were at my direction and personally dictated by me. I have reviewed the chart and agree that the record accurately reflects my personal performance of the history, physical exam, medical decision making, and the department course for this patient. I have also personally directed, reviewed, and agree with the discharge instructions and disposition. Disposition/Present on Arrival - Present on Arrival Any Indicators Present on Arrival: No History of DVT/PE: No History of Uncontrolled Diabetes: No Urinary Catheter: No History of Decub. Ulcer: No History Surgical Site Infection Following: None - Disposition Have Diagnosis and Disposition been Completed?: Yes Diagnosis: Hypernatremia, Lumbar radiculopathy, acute Disposition: HOME/ ROUTINE Disposition Time: 20:17 Patient Plan: Discharge Condition: GOOD Discharge Instructions (ExitCare): Radiculopathy (DC), Sodium Test Additional Instructions: Glendy - Your sodium level is a little high.... no salt. plenty of water. [8 eight ounce glasses a day]. Have your doctor recheck the level next week. Your CT scan just shows some degenerative changes (arthritis). Your pain is from sciatica. The motrin is for pain and inflammation. The flexeril is for muscle spasm. Rest as much as possible. Return to us if any problems. Best- Dr. Chon Esparza Prescriptions: Cyclobenzaprine [Flexeril] 5 mg PO TID #30 tab Ibuprofen [Motrin Tab] 800 mg PO TID #30 tab Referrals: Angel Henderson MD [Primary Care Provider] - Follow up with primary Forms: [employer] ([place])
[2017-12-04 18:50] LABS: PH,URINE 6.5 (4.7-8.0); URINE BILIRUBIN NEGATIVE (NEGATIVE); URINE BLOOD NEGATIVE (NEGATIVE); URINE GLUCOSE (UA) NEGATIVE (NEGATIVE); URINE LEUKOCYTE ESTERASE NEGATIVE Leu/uL (NEGATIVE); URINE PROTEIN NEGATIVE mg/dL (<30 mg/dL); URINE UROBILINOGEN 0.2 E.U./dL (<1 E.U./dL)
[2017-12-04 18:51] LABS: URINE APPEARANCE CLEAR (CLEAR); URINE COLOR YELLOW (YELLOW)
[2017-12-04 18:59] LABS: BASO # 0.03 K/mm3 (0.0-2.0); BASO % 0.3 % (0.0-3.0); EOS # 0.2 (0.0-0.7); EOS % 2.3 % (1.5-5.0); GRAN # 5.63 (1.4-6.5); GRAN % 65.2 % (50.0-68.0); HEMOGLOBIN 11.8 g/dL (12.0-16.0); LYMPH # 2.2 (1.2-3.4); MEAN CELL VOLUME 78.1 fl (80.0-105.0); MEAN CORPUSCULAR HEMOGLOBIN 24.6 pg (25.0-35.0); MEAN CORPUSCULAR HGB CONC 31.6 g/dl (31.0-37.0); MEAN PLATELET VOLUME 11.2 fl (7.0-11.0); MONO # 0.6 (0.1-0.6); MONO % 7.2 % (1.0-6.0); RBC 4.79 10^6/uL (3.5-6.1); WHITE BLOOD COUNT 8.6 10^3/ul (4.5-11.0)
[2017-12-04 19:08] LABS: INR 1.04 (0.93-1.08); PROTHROMBIN TIME 11.9 SECONDS (9.4-12.5)
[2017-12-04 19:09] LABS: ALB/GLOB RATIO 1.4 (1.1-1.8); ALBUMIN 4.2 g/dL (3.0-4.8); ALT/SGPT 32 U/L (7-56); AST/SGOT 22 U/L (14-36); BLOOD UREA NITROGEN 16 mg/dL (7-21); CALCIUM 9.6 mg/dL (8.4-10.5); GFR AFRICAN-AMERICAN > 60; GFR NON-AFRICAN AMERICAN > 60
--- NOTE | 2017-12-04 20:09 | CT ---
EXAM: CT Lumbar Spine Without Intravenous Contrast EXAM DATE/TIME: 12/04/2017 6:05 PM CLINICAL HISTORY: 47 years old, female; Pain; Lumbago with sciatica; Right; Additional info: Right sided sciatica TECHNIQUE: Axial computed tomography images of the lumbar spine without intravenous contrast. All CT scans at this facility use one or more dose reduction techniques, viz.: automated exposure control; ma/kV adjustment per patient size (including targeted exams where dose is matched to indication; i.e. head); or iterative reconstruction technique. Coronal and sagittal reformatted images were created and reviewed. COMPARISON: There are no prior studies for comparison. FINDINGS: Vertebrae: Visualized vertebral bodies are normal in height. There are only 4 non-rib bearing lumbar type vertebral bodies. There degenerative changes in the lower thoracic spine with disc space narrowing and osteophyte formation. There is mild posterior disc space narrowing at all lumbar levels greatest at the lumbosacral junction with small posterior spurs with disc bulging. There is mild bony encroachment on the left neural foramina at the lumbosacral junction. There is degenerative facet disease greatest at the lumbosacral junction. There is small osteophytes at multiple lumbar levels. Discs/spinal canal/neural foramina: See above. Soft tissues: Psoas and paraspinous muscles are symmetric. Kidneys and ureters: There are nonobstructing left renal stones. IMPRESSION: Degenerative change comment no fracture
[2017-12-04 20:57] VITALS: BP 148/82; PULSE 79; RESP 18
[2017-12-04 21:00] VITALS: O2SAT 99
== END 2017-12-04 20:59 | disposition home or self-care (01) ==
LOC: ED 17:00
DX: M54.16 Radiculopathy, lumbar region (principal); E87.0 Hyperosmolality and hypernatremia; I10 Essential (primary) hypertension; Z87.891 Personal history of nicotine dependence
CPT/HCPCS: 72131; 80053; 81003; 85025; 85610; 87086; 96372; 99283; J1030; J1885

== ENCOUNTER 2018-11-03 09:41 | Emergency (ER) | payer MEDICAID ==
[2018-11-03 09:55] VITALS: BMI 35.6
[2018-11-03 10:00] VITALS: O2SAT 98
--- NOTE | 2018-11-03 10:43 | ED PDOC ---
Arrival/HPI - General Chief Complaint: Lower Extremity Problem/Injury Time Seen by Provider: 11/03/18 09:55 Historian: Patient - History of Present Illness Narrative History of Present Illness (Text): 11/03/18 10:40 48 year old F with pmh of hysterectomy and hypertension presents complaining of right sided leg pain x2 days. Patient reports initially having right foot pain when soon radiated to her right knee and hip. Patient denies any fall, trauma, bowel or bladder incontinence, saddle anesthesia or lower extremity weakness. Patient mentioned taking Aleve yesterday which failed to relieve any pain. Patient denies any fevers, chills, headache, dizziness, chest pain, shortness of breath, dyspnea on exertion, cough, diaphoresis, abdominal pain, nausea, vomiting, diarrhea, neck pain, or any other complaint. PMD: Dr. Mcmanus Time/Duration: < week Symptom Onset: Sudden Symptom Course: Unchanged Activities at Onset: Light Context: Home Past Medical History - Provider Review Nursing Documentation Reviewed: Yes - Infectious Disease Hx of Infectious Diseases: None - Tetanus Immunization Tetanus Immunization: Unknown - Cardiac Hx Cardiac Disorders: Yes Hx Hypertension: Yes - Pulmonary Hx Respiratory Disorders: No - Neurological Hx Neurological Disorder: No - HEENT Hx HEENT Disorder: No - Renal Hx Renal Disorder: Yes Hx Kidney Stones: Yes Other/Comment: kidney stent 05/05/2017 - Endocrine/Metabolic Hx Endocrine Disorders: No - Hematological/Oncological Hx Blood Disorders: Yes Hx Anemia: Yes - Integumentary Hx Dermatological Disorder: No - Musculoskeletal/Rheumatological Hx Falls: No - Gastrointestinal Hx Gastrointestinal Disorders: No - Genitourinary/Gynecological Hx Genitourinary Disorders: Yes (Uterine Leiomyoma) - Psychiatric Hx Psychophysiologic Disorder: No Hx Emotional Abuse: No Hx Physical Abuse: No Hx Substance Use: No - Past Surgical History Past Surgical History: No Previous - Surgical History Hx Hysterectomy: Yes Other/Comment: stent placed in L kidney - Anesthesia Hx Anesthesia: Yes Hx Anesthesia Reactions: No Hx Malignant Hyperthermia: No - Suicidal Assessment Feels Threatened In Home Enviroment: No Family/Social History - Physician Review Nursing Documentation Reviewed: Yes Family/Social History: Unknown Family HX Smoking Status: Former Smoker Hx Alcohol Use: No Hx Substance Use: No Hx Substance Use Treatment: No Allergies/Home Meds Allergies/Adverse Reactions: Allergies No Known Allergies Allergy (Verified 05/20/17 17:10) Review of Systems - Physician Review All systems were reviewed & negative as marked: Yes - Review of Systems Constitutional: absent: Fevers ENT: absent: Rhinorrhea Respiratory: absent: SOB, Cough Cardiovascular: absent: Chest Pain, Syncope Gastrointestinal: absent: Abdominal Pain, Diarrhea, Nausea, Vomiting, Hematochezia Genitourinary Female: absent: Dysuria, Hematuria Musculoskeletal: Other (pain to right hip, knees and foot). absent: Back Pain, Joint Swelling Skin: absent: Rash Neurological: absent: Headache, Dizziness Physical Exam Vital Signs Reviewed: Yes Vital Signs Temp Pulse Resp BP Pulse Ox 11/03/18 09:56 97.8 F 80 17 148/89 98 Temperature: Afebrile Blood Pressure: Normal Pulse: Regular Respiratory Rate: Normal Appearance: Positive for: Well-Appearing, Non-Toxic, Comfortable Pain Distress: Mild Mental Status: Positive for: Alert and Oriented X 3 - Systems Exam Head: Present: Atraumatic, Normocephalic Pupils: Present: PERRL Extroacular Muscles: Present: EOMI Conjunctiva: Present: Normal Mouth: Present: Moist Mucous Membranes Neck: Present: Normal Range of Motion Respiratory/Chest: Present: Clear to Auscultation, Good Air Exchange. No: Respiratory Distress, Accessory Muscle Use Cardiovascular: Present: Regular Rate and Rhythm, Normal S1, S2. No: Murmurs Abdomen: No: Tenderness, Distention, Peritoneal Signs Back: Present: Normal Inspection Upper Extremity: Present: Normal Inspection. No: Cyanosis, Edema Lower Extremity: Present: NORMAL PULSES, Normal ROM, Tenderness (tenderness to PSIS), Neurovascularly Intact, Other (straight leg test negative). No: Edema, CALF TENDERNESS, Erythema Neurological: Present: GCS=15, CN II-XII Intact, Speech Normal Skin: Present: Warm, Dry, Normal Color. No: Rashes Psychiatric: Present: Alert, Oriented x 3, Normal Insight, Normal Concentration Medical Decision Making ED Course and Treatment: 11/03/18 10:43 Impression: 48 year old F presents complaining of right sided leg pain x2 days. Patient denies any fall, trauma, bowel or bladder incontinence, saddle anesthesia or lower extremity weakness Plan: -- Toradol -- Reassess and disposition Prior Visits: Notes and results from previous visits were reviewed. Progress Notes: 11/03/18 12:35 Reassessed patient, who says she is feeling better and ready to home. Will prescribe antiinflammatories and advise to f/o with primary care. - Scribe Statement The provider has reviewed the documentation as recorded by the Hortensiaibdelano Jones All medical record entries made by the Scribe were at my direction and personally dictated by me. I have reviewed the chart and agree that the record accurately reflects my personal performance of the history, physical exam, [facility] decision making, and the department course for this patient. I have also personally directed, reviewed, and agree with the discharge instructions and disposition. Disposition/Present on Arrival - Present on Arrival Any Indicators Present on Arrival: Yes History of DVT/PE: No History of Uncontrolled Diabetes: No Urinary Catheter: No History of Decub. Ulcer: No History Surgical Site Infection Following: None - Disposition Have Diagnosis and Disposition been Completed?: Yes Diagnosis: Lumbar radiculopathy Disposition: HOME/ ROUTINE Disposition Time: 12:43 Patient Plan: Discharge Condition: IMPROVED Discharge Instructions (ExitCare): Radiculopathy (DC) Additional Instructions: JOSE JUAN WILLIAM, thank you for letting us take care of you today. Your provider was Marlene Poewll MD and you were treated for hip and leg pain (right side). The emergency medical care you received today was directed at your acute symptoms. If you were prescribed any medication, please fill it and take as directed. It may take several days for your symptoms to resolve. Return to the Emergency Department if your symptoms worsen, do not improve, or if you have any other problems. Please contact your doctor for a follow up appointment in 1-2 days. Bring any paperwork you were given at discharge with you along with any medications you are taking to your follow up visit. Our treatment cannot replace ongoing medical care by a primary care provider outside of the emergency department. Thank you for allowing the [facility] team to be part of your care today. Prescriptions: Cyclobenzaprine [Flexeril] 5 mg PO TID PRN #20 tab PRN Reason: Muscle Spasm Naproxen [Naprosyn] 500 mg PO BID PRN #30 tablet PRN Reason: Pain, Moderate (4-7) Referrals: Marlin Mcmanus DO [Primary Care Provider] - Follow up with primary Forms: [employer] (Lithuanian)
[2018-11-03 11:37] VITALS: RESP 18
[2018-11-03 12:47] VITALS: BP 138/68; PULSE 69; TEMP 98
== END 2018-11-03 12:51 | disposition home or self-care (01) ==
LOC: ED 09:41
DX: M54.16 Radiculopathy, lumbar region (principal)
CPT/HCPCS: 81025; 96372; 99285; J1885